=== PATIENT | female | born 1995 | race Native Hawaiian/Other Pacific Islander ===

== ENCOUNTER 2024-11-20 10:49 | Outpatient (AMB) | payer OTHER, SELFPAY ==
--- NOTE | 2024-11-20 10:57 | A.OFFPC_ITS ---
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: No Allergies No Known Allergies Allergy (Verified 11/20/24 11:11) Medication List - Last Reconciled 11/20/24 by GUNNER Davis No Known Home Meds Tobacco use date assessed: 11/20/24 Dental Screening Dental Screen Date: 11/20/24 Did you have a dental visit in the last 12 months?: Yes Did you have a dental problem in the last 6 months where you did not have access to dental care?: No Was dental information given to patient?: Patient has dentist HPI HPI Comments History of Present Illness Details 29 y/o F with migraines, Vit d def, GERD , herpes, dysmenorrhea, elevated DEZ, scoliosis, NEL, MDD Family hx: Brother with RA; Mom with aneurysm Social: works at [email or web address] as [employer]; 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 Surgery: EGD Health Maintenance Tdap admin today Pap [facility] Specialist TRANSPORT MEDIC Rheum - no longer ff'd Optho [facility] exam 6 months ago; wears glasses Neuro Here to est care & for CPE Previous PCP: Rhiannon - records rec'd and reviewed. History of Present Illness - Has migraines. She describes a history of chronic migraines, previously managed with medications such as amitriptyline. - She experiences early sensitivity prio r to migraines; occasionally with nausea and vomiting. Has been off meds for some time. would like to see neuro - An established history of scoliosis an d chronic issues with pain in her back - Desires weight gain and has explored d ietary means, finding them ineffective. aunt on Testosterone injectables and she wants to start. states she does not want to undergo a full F to M transition but would like the benefits of getting bigger - Past medical history includes vitamin D deficiency. Not on supplement at this time Past Surgical History - History of blood transfusions in 2019 and 2011 d/t heavy menses. Social History - Employment involves significant hand m otion, leading to joint discomfort. - Nutrition-focused to gain weight; disc usses dietary habits and nutritional considerations. - Denies current exercise routine but sh owed interest in starting physical therapy. Health Maintenance - Tetanus booster due in 2018 was discus sed. - Discussed plans for routine vaccinatio n updates. - Recommended routine women?s health scr eenings. - Emphasized using patient portal for fu rther direct communication. Review of Systems - Neurological: Reports frequent migrain es, sometimes accompanied by nausea or vomiting. - Musculoskeletal: Reports joint pain pr imarily in fingers. - Gastrointestinal: Reports chronic cons tipation. - General: Denies fainting spells during lab tests. Physical Exam General: Well developed, well nourished, in no acute distress. Appears stated age. Head: Normocephalic, atraumatic. Eyes: Pupils are equal, round and reactive to light and accommodation. Conjunctivae are clear. Vision grossly normal. Ears: TMs clear AU, EACS WNL Nose: Patent, without discharge. Neck: Supple, no adenopathy or thyromegaly. Breast: Edu on SBE Lungs: Clear to auscultation bilaterally. No rales, rhonchi or wheeze noted. Good air flow in all nunes. Heart: Regular rate and rhythm. No murmurs, click, rubs or gallops are noted. Abdomen: Bowel sounds present in all quadrants. The abdomen is soft, nontender, with no masses or organomegaly noted. No hernias are noted. : Deferred. Reviewed recommendations for routine TRANSPORT MEDIC Pulses: Peripheral pulses are equal and palpable bilaterally. Extremities: No clubbing, cyanosis nor edema is noted. Neurologic: Gait and station normal. Cranial Nerves 2-12 intact. Motor strength grossly symmetrical and intact. No sensory loss. Balance normal. Scoliosis observed Skin: No rashes, ulcers, or lesions noted. Turgor is good. Skin color is good. Hair and nails are without abnormalities. Psych: Normal eye contact, affect and mood appropriate, and normal interactions. Patient is alert and appropriate to context. Results Labs from today WNL. Discussion Notes We discussed her ongoing management of migraine headaches, focusing on possibly reintroducing a medication such as amitriptyline. Options for preventive strategies were tied to lifestyle adjustments. Recommedl physical therapy to mitigate back pain from scoliosis. I provided guidance on using the patient portal for more streamline health communications. I highlighted the importance of weight management, emphasizing nutritional approaches while referring to endocrinology to review use to Testosterone. Discouraged use from friends, family or the like. Further, discussed a possible tetanus vaccine update and the significance of keeping vaccinations current. Assessment and Plan 1. Migraine management involves potentia l reinitiating of amitryptiline, riboflavin and sumitriptan considering past success. Monitoring individual response to medication was discussed. [facility] Neuro referrral 2. For scoliosis-related symptoms, recom mendation to start physical therapy as a proactive approach to minimize discomfort. Patient Instructions - Begin exploring physical therapy optio ns for back support. - Monitor headaches and discuss any wors ening patterns. - Plan for the tetanus vaccine during e next available appointment. Consent Patient was informed and verbally consented to the use of an ambient scribe for clinic note documentation during this visit. An additional 40 minutes was spent addressing the problem(s) noted at todays visit. This includes time spent before the visit reviewing the chart, time spent during the visit, and time spent after the visit on documentation reviewing l aboratory results, diagnostic imaging, medications, performing a medically necessary evaluation, counseling on diagnoses, care coordination, ordering appropriate tests, ordering appropriate medications, review of tests performed by other providers, reporting test results with the patient, communication with other healthcare providers. [facility] Medical History (Updated 11/20/24 @ 21:01 by Selene Braxton [facility]) Anemia Migraines Surgical History (Updated 11/20/24 @ 11:08 by Milena Keller MA) No pertinent past surgical history Family History (Updated 11/20/24 @ 11:08 by Milena Keller MA) Mother Mental health disorder Asthma Sister Asthma Social History (Updated 11/20/24 @ 11:07 by Milena Keller MA) Household Members: Significant Other and Family Housing: House Are you a primary critical care paramedic to a significant other at home: No Do you presently have visiting nurse or other home services: No Alcohol intake: current Alcohol intake frequency: a few times a month Patient Tobacco Use Status: Never used Tobacco e-Cigarette/Vaping Use: Never Used Second Hand Smoke Exposure: No Substance Use Type: Marijuana service: No Current occupational status: employed Current occupation: [employer] Cognitive needs: No Hearing needs: No Vision needs: Yes (wear glasses) Questionnaire PHQ-9 Over the last 2 weeks, how often have you been bothered by any of the following problems? 1. Little interest or pleasure in doing things: not at all 2. Feeling down, depressed, or hopeless: not at all 3. Trouble falling or staying asleep, or sleeping too much: not at all 4. Feeling tired or having little energy: several days 5. Poor appetite or overeating: not at all 6. Feeling bad about yourself - or that you are a failure or have let yourself or your family down: not at all 7. Trouble concentrating on things, such as reading the newspaper or watching television: not at all 8. Moving or speaking so slowly that other people could have noticed. Or the opposite - being so fidgety or restless that you have been moving around a lot more than usual: not at all 9. Thoughts that you would be better off or of hurting yourself in some way: not at all Total score: 1 Depression Screening Interpretation: Negative Depression Screening Done: Yes 12344 - PHQ-9 Billing: Yes Source: Developed by Drs. Mauro Bonilla, Kemi Galaviz, Hugo Pavon and colleagues, with an educational mary from [employer]. Thrive Questionnaire Date Thrive assessed: 11/20/24 I am a: Patient What is your living situation today?: I have a steady place to live Within the past 12 months, did the food you bought not last and you didn't have the money to get more?: Never true Within the past 12 months, did you worry whether your food would run out before you got money to buy more?: Never true Do you have trouble paying for medicines?: No Do you have trouble getting transportation to medical appointments?: No Do you have trouble paying your heating and electricity bill?: No Do you have trouble taking care of your child, family member or friend?: No Do you have trouble with day-to-day activities such as bathing, preparing meals, shopping, managing finances, etc.?: No Are you currently unemployed and looking for a job?: No Are you interested in more education?: No Please select the resources that you would like help with: None Currently or been in a relationship where the following occur: No concerns reported THRIVE Score: 0 AUDIT C Alcohol Use Questionnaire (AUDIT-C) 1. How often do you have a drink containing alcohol?: 2-4 times a month 2. How many drinks containing alcohol do you have on a typical day when you are drinking?: 3 or 4 3. How often do you have six or more drinks on one occasion?: Never Total Score: 3 Score Reviewed/Action Taken: Yes NEL-7 AMB Questionnaire NEL-7 Date NEL - 7 assessed: 11/20/24 Feeling nervous, anxious, or on edge: 0 = Not at all Not being able to stop or control worryin = Not at all Worrying too much about different things: 0 = Not at all Trouble relaxin = Several days Being so restless that it is hard to sit still: 0 = Not at all Becoming easily annoyed or irritable: 0 = Not at all Feeling afraid as if something awful might happen: 0 = Not at all Total NEL-7 score (0-4 normal; 5-9 mild; 10-14 moderate; 15-21 severe): 1 Source: Developed by Drs. Mauro Bonilla, Kemi Galaviz, Hugo Pavon and colleagues, with an educational mary from [employer]. ENL-7 Assessment Billing NEL-7 Assessment Tool: NEL-7 Assessment 95440 Physical exam (Primary Care) Vital Signs: Last Vital Signs Temp 97.3 F 11/20/24 11:03 Pulse 66 11/20/24 11:03 Resp 12 11/20/24 11:03 BP 97/67 11/20/24 11:03 Pulse Ox 99 11/20/24 11:03 Oxygen Delivery Method Room Air 11/20/24 11:03 BMI result Body Mass Index 16.0 Tobacco/Smoking Status: Tobacco use Status Tobacco use date assessed 11/20/24 11/20/24 11:05 Patient Tobacco Use Status Never used Tobacco 11/20/24 11:07 e-Cigarette/Vaping Use Never Used 11/20/24 11:07 PHQ-9: PHQ-9 Score PHQ-9: Total score 1 11/20/24 11:52 Depression Screening Interpretation: Negative Thrive Assessment: Date of Thrive Assessment Date Thrive assessed 11/20/24 11/20/24 11:01 Currently or been in a relationship where the following occur: No concerns reported Immunizations Boostrix Tdap 2.5 Lf unit-8 mcg-5 Lf/0.5 mL intramuscular syringe Performing Provider: SENAIT Davis Performing Location: [facility] Family Medicine Administered by: Justina Torres RN on 11/20/24 11:51 Dose Route Admin Location Dispensed Lot Number Expiration Date NDC 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[employer] 0.5 mL IM Left Deltoid 0.5 mL [id number] 07/26/26 [id number] [employer] VIS Given Date VIS Provided VIS Publication Date 11/20/24 Single Vaccine 21 Eligibility Eligibility Date Funding Source Not [facility] Eligible 11/20/24 Private Coding Level of Care Code New Pt Level 3 (13067) New Pt Prev Care 18-39yr(60208 Diagnoses Encounter for general adult medical examination with abnormal findings Z00.01 Laboratory exam ordered as part of routine general medical examination Z00.00 Migraine with aura and without status migrainosus, not intractable G43.109 Status migrainosus presence: without status migrainosus Intractability: not intractable Family history of aneurysm Z82.49 Chronic left-sided thoracic back pain M54.6; G89.29 Back pain location: thoracic back pain Chronicity: chronic Back pain laterality: left Hormone replacement therapy Z79.890 Need for Tdap vaccination Z23 Other idiopathic scoliosis, thoracolumbar region M41.25 Idiopathic scoliosis type: other Spinal region: thoracolumbar Scoliosis type: idiopathic Mild episode of recurrent major depressive disorder F33.0 Major depression episode severity: mild NEL (generalized anxiety disorder) F41.1 Herpes B00.9 Vitamin D deficiency E55.9 GERD without esophagitis K21.9 Positive DEZ (antinuclear antibody) R76.8 Additional Codes NEL-7 Assessment Billing - NEL-7 Assessment Tool: NEL-7 Assessment 77619 ([id number]) PHQ-9 - 66395 - PHQ-9 Billing: Yes ([id number]) Assessment & Plan Assessment & Plan (1) Encounter for general adult medical examination with abnormal findings: Onset Date: ~11/2024 Code(s): Z00.01 - Encounter for general adult medical examination with abnormal findings Category: Medical (2) Laboratory exam ordered as part of routine general medical examination: Code(s): Z00.00 - Encounter for general adult medical examination without abnormal findings Category: Medical (3) Migraine with aura: Code(s): G43.109 - Migraine with aura, not intractable, without status migrainosus Category: Medical Qualifiers: Status migrainosus presence: without status migrainosus Intractability: not intractable Qualified Code(s): G43.109 - Migraine with aura, not intractable, without status migrainosus (4) Family history of aneurysm: Comment: Mom has brain aneurysm Code(s): Z82.49 - Family history of ischemic heart disease and other diseases of the circulatory system Category: Medical (5) Back pain: Code(s): M54.9 - Dorsalgia, unspecified Category: Medical Qualifiers: Back pain location: thoracic back pain Chronicity: chronic Back pain laterality: left Qualified Code(s): M54.6 - Pain in thoracic spine; G89.29 - Other chronic pain (6) Hormone replacement therapy: Code(s): Z79.890 - Hormone replacement therapy Category: Medical (7) Need for Tdap vaccination: Code(s): Z23 - Encounter for immunization Category: Medical (8) Scoliosis: Code(s): M41.9 - Scoliosis, unspecified Category: Medical Qualifiers: Idiopathic scoliosis type: other Spinal region: thoracolumbar Scoliosis type: idiopathic Qualified Code(s): M41.25 - Other idiopathic scoliosis, thoracolumbar region (9) MDD (major depressive disorder), recurrent episode: Comment: stable w/o meds Code(s): F33.9 - Major depressive disorder, recurrent, unspecified Category: Medical Qualifiers: Major depression episode severity: mild Qualified Code(s): F33.0 - Major depressive disorder, recurrent, mild (10) NEL (generalized anxiety disorder): Comment: stable w/o meds Code(s): F41.1 - Generalized anxiety disorder Category: Medical (11) Herpes: Code(s): B00.9 - Herpesviral infection, unspecified Category: Medical (12) Vitamin D deficiency: Comment: vit d normal today w/o supplement Code(s): E55.9 - Vitamin D deficiency, unspecified Category: Medical (13) GERD without esophagitis: Comment: stable w/o meds Code(s): K21.9 - Gastro-esophageal reflux disease without esophagitis Category: Medical (14) Positive DEZ (antinuclear antibody): Comment: with negative assoc labs; seen by rheum in past; negative findings Code(s): R76.8 - Other specified abnormal immunological findings in serum Category: Medical Plan . Orders: Orders Comprehensive Met. Panel Today Z00.00 - Encounter for general adult medical examination without abnormal findings, Z11.3 - Encounter for screening for infections with a predominantly sexual mode of transmission TSH reflex Free T4 Today Z00.00 - Encounter for general adult medical examination without abnormal findings, Z11.3 - Encounter for screening for infections with a predominantly sexual mode of transmission Vitamin B12 and Folate Today Z00.00 - Encounter for general adult medical examination without abnormal findings, Z11.3 - Encounter for screening for infections with a predominantly sexual mode of transmission Complete Blood Count no Diff Today Z00.00 - Encounter for general adult medical examination without abnormal findings, Z11.3 - Encounter for screening for infections with a predominantly sexual mode of transmission Hemoglobin A1c Today Z00.00 - Encounter for general adult medical examination without abnormal findings, Z11.3 - Encounter for screening for infections with a predominantly sexual mode of transmission Lipid Panel Today Z00.00 - Encounter for general adult medical examination without abnormal findings, Z11.3 - Encounter for screening for infections with a predominantly sexual mode of transmission Microalbumin, Random (w Creat) Today Z00.00 - Encounter for general adult medical examination without abnormal findings, Z11.3 - Encounter for screening for infections with a predominantly sexual mode of transmission Vitamin D 25-OH Total Today Z00.00 - Encounter for general adult medical examination without abnormal findings, Z11.3 - Encounter for screening for infections with a predominantly sexual mode of transmission HIV Ab/Ag Today Z00.00 - Encounter for general adult medical examination without abnormal findings, Z11.3 - Encounter for screening for infections with a predominantly sexual mode of transmission Syphilis Screen Today Z00.00 - Encounter for general adult medical examination without abnormal findings, Z11.3 - Encounter for screening for infections with a predominantly sexual mode of transmission UA CC w/rflx Micro + Cult Today Z00.00 - Encounter for general adult medical examination without abnormal findings, Z11.3 - Encounter for screening for infections with a predominantly sexual mode of transmission PT Evaluation and Treatment Today M41.9 - Scoliosis, unspecified, M54.9 - Dorsalgia, unspecified TDaP Immunization Today Z23 - Encounter for immunization Referrals [facility] Referral Z12.4 - Encounter for screening for malignant neoplasm of cervix Endocrinology Referral Z79.890 - Hormone replacement therapy Neurology Referral G43.109 - Migraine with aura, not intractable, without status migrainosus, Z82.49 - Family history of ischemic heart disease and other diseases of the circulatory system Medications: New sumatriptan succinate take 1 tab at onset of headache; if no relief may repeat 1 tab after at least 2 hrs; max = 4 tabs/24 hr PO 7 tabs 3RF riboflavin (vitamin B2) 100 mg PO DAILY 90 tabs 2RF amitriptyline 10 mg PO BEDTIME 90 tabs 1RF Patient Instructions: Walk-In Care (Urgent Care): We Make it Easy Walk-in for urgent medical issues such as: ? Seasonal Allergies ? Insect Bites ? Cough ? Diarrhea ? Acute Asthma Attacks ? Back, Knee or Joint Pain ? Ear Infection ? Fever without a Rash ? Headaches ? Nausea ? [place] [facility], Rash or Skin Irritation ? Sore Throat ? Sports Physicals ? Vomiting Most insurances are accepted. Patients do not need to be part of the [facility] to seek care at the walk-in clinic. Locations [facility] , [place] [address] ? [phone] [facility] Walk-In Care in [place] provides services to ages 18 and over. Open Monday-Monday: 8 a.m. to 5 p.m. and Monday: 9 a.m. to 3 p.m.* *Hours may vary due to staffing availability. To confirm Walk-In Care hours in [place], please call [phone]. [address] [place] [address] ? [phone] [facility] Walk-In Care in [place] provides services to ages 12 and over. Open Monday-Monday: 8 a.m. to 5 p.m. Hours may vary due to staffing availability. To confirm Walk-In Care hours in [place], please call [phone]. LABORATORY SERVICES: [facility] Lab ? Primary Location [address] [place] [address] Monday through Monday 6:00 AM ? 5:00 PM Monday 7:00 AM ? 11:00 AM* [phone] The [facility] Lab is centrally located near the front entrance of the [facility] for easy outpatient access. Convenient parking is provided for outpatients. *Hours may vary due to staffing availability. To confirm Laboratory hours for any location, please call [phone]. Offsite Location For your convenience, we offer offsite laboratory draw stations at the following locations: [address] [facility] [place] [address], [address], [place] Monday through Monday 7:30 AM ? 1:00 PM* [phone] *Hours may vary due to staffing availability. To confirm Laboratory hours for any location, please call [phone]. [place] ? [facility] [address] [facility], [place] Monday through Monday 6:00 AM ? 3:30 PM* Monday 6:30 AM ? 3 PM* [phone] *Hours may vary due to staffing availability. To confirm Laboratory hours for any location, please call [phone]. [address] [facility] Monday through Monday 7:30 AM ? 4:00 PM* [phone] *Hours may vary due to staffing availability. To confirm Laboratory hours for any location, please call [phone] [place] [address] Monday through 9:00 AM ? 4:00 PM* *Hours may vary due to staffing availability. To confirm Laboratory hours for any location, please call [phone]. Appointments are not necessary. Walk-ins are welcome. Like all the departments throughout the [facility], our Lab undergoes frequent reviews to ensure the quality and accuracy of test results, and our staff takes special pride in its status as a nationally accredited facility. Patient Portal: ONE PATIENT. ONE RECORD. BETTER CARE. [facility] has a fully integrated, cutting- edge mobile electronic health information system that has revolutionized the way we care for our patients and manage our organization. This system improves communication and coordination enabling us to provide safe, higher-quality care, and an overall positive experience for staff and patients. Our first priority, as always, is to deliver the highest quality care possible. The system is running in the background supporting that priority. This portal is for all [facility] services and practices. If you are experiencing any technical difficulties with enrolling or logging into the Patient Portal please complete the [facility] Patient Portal Technical Support Form. [facility] now offers a new secure on-line interactive tool for patients to review their health information ? ?Patient Portal. This interactive web portal will enable patients and their families to take an active role in their care by providing easy, secure access to their health information via the internet. The Patient Portal provides patients with instant access to their health information, including laboratory results, medications, allergies, demographic information, visit history, and more. In addition to managing their own care, parents and health care proxies with authorized consent will appreciate the ability to access the records of those individuals for whom they provide care. Please note: if you wish to gain access (Proxy) to another patient?s portal, you will be required to come to the Medical Records Department in person at [facility]. Both the patient giving proxy access and the proxy will need to provide photo identification and complete the appropriate authorization. The Patient Portal also allows track their appointments online. The [facility] Patient Portal also saves patients time by allowing them to submit updates to their demographic and contact information prior to their visits. Portal email notifications will also alert patients to any new activity on their portal, such as test results and new appointments. In order to initially enroll in the [facility] Patient Portal, you will need to enter some required information including the following: * your [facility] Medical Record number * your personal home email address * name * date of Please note: In order to enroll in the [facility] Patient Portal, we need to have your email address on file in your electronic medical record. ?The email address needs to be specific for one person (yourself) in order for your Portal enrollment to be successful. ?You can update your email address in person with our Registration staff when you are registering for a hospital visit. ?Otherwise, you will need to come to the Health Information Management (Medical Records) Department at [facility]. ?We are open from Monday ? Monday from 7:30 a.m. ? 4:30 p.m. ?You will be required to present a photo id. Once you have successfully enrolled in the Patient Portal, you will receive a one-time user id and password for the Portal, sent to your email address. ?This will allow you to log into the Patient Portal within 99 hrs and reset your own logon id and password, and define personal security questions. ?Once your permanent login and password have been set, you can log into the [facility] Patient Portal at any time via the blue button above or from the Portal Logon button on any page of the [facility] website. [facility] and [facility] encourage all of our patients to enroll in Patient Portal as it presents a valuable opportunity for patients and their families to actively participate in their care and stay healthy Welcome to [facility]. ?We look forward to working with you. Health screenings for women You should visit your health care provider from time to time, even if you are healthy. The purpose of these visits is to: Screen for medical issues Assess your risk for future medical problems Encourage a healthy lifestyle Update vaccinations and other preventive care services Help you get to know your provider in case of an illness Information Even if you feel fine, you should still see your provider for regular checkups. These visits can help you avoid problems in the future. For example, the only way to find out if you have high blood pressure is to have it checked regularly. High blood sugar and high cholesterol levels also may not have any symptoms in the early stages. A simple blood test can check for these conditions. There are specific times when you should see your provider or receive specific health screenings. The [place] Preventive Services Task Force publishes a list of recommended screenings. Below are screening guidelines for women ages 18 to 39. BLOOD PRESSURE SCREENING Your blood pressure should be checked at least once every 3 to 5 years if: Your blood pressure is in the normal range (top number less than 120 mm Hg and bottom number less than 80 mm Hg) You don't have risk factors for high blood pressure Ask your provider if you need your blood pressure checked more often if: The top number is 120 to 129 mm Hg or the bottom number is 70 to 79 mm Hg You have diabetes, heart disease, kidney problems, are overweight, or have certain other health conditions You have a first-degree relative with high blood pressure You are Black You had high blood pressure during a If the top number is 130 mm Hg or greater or the bottom number is 80 mm Hg or greater, this is considered stage 1 hypertension. Schedule an appointment with your provider to learn how you can reduce your blood pressure. Watch for blood pressure screenings in your area. Ask your provider if you can stop in to have your blood pressure checked. BREAST CANCER SCREENING Experts do not agree about the benefits of breast self-exams in finding breast cancer or saving lives. Talk to your provider about what is best for you. A screening mammogram is not recommended for most women under age 40. Your provider may discuss and recommend mammograms, MRI scans, or ultrasounds if you have an increased risk for breast cancer, such as: A mother or sister who had breast cancer at a young age (most often starting screening earlier than the age the close relative was diagnosed) You carry a high-risk genetic marker CERVICAL CANCER SCREENING Cervical cancer screening should start at age 21 years unless your provider advi ses otherwise. After the first test: Women ages 21 through 29 should have a Pap test every 3 years. Exoprts do not agree on whether HPV testing is recommended for this age group. Women ages 30 through 65 should be screened with either a Pap test every 3 years or the HPV test every 5 years or both tests every 5 years (called cotesting ). Women who have been treated for precancer (cervical dysplasia) should continue to have Pap tests for 20 years after treatment or until age 65, whichever is longer. If you have had your uterus and cervix removed (total hysterectomy), and you have not been diagnosed with cervical cancer or precancer (high grade cervical neoplasia), you do not need cervical cancer screening. CHOLESTEROL SCREENING Cholesterol screening should begin at: Age 45 for women with no known risk factors for coronary heart disease Age 20 for women with known risk factors for coronary heart disease Repeat cholesterol screening should take place: Every 5 years for women with normal cholesterol levels More often if changes occur in lifestyle (including weight gain and diet) More often if you have diabetes, heart disease, kidney problems, or certain other conditions DIABETES SCREENING You should be screened for diabetes starting at age 35 and then repeated every 3 years if you have no risk factors for diabetes. Screening may need to start earlier and be repeated more often if you have other risk factors for diabetes, such as: You have a first degree relative with diabetes. You are overweight or have obesity. You have high blood pressure, prediabetes, or a history of heart disease. Screening for diabetes should be done if you are planning to become and you are overweight and have other risk factors such as high blood pressure. DENTAL EXAM Go to the dentist once or twice every year for an exam and cleaning. Your dentist will evaluate if you need more frequent visits. EYE EXAM Have an eye exam every 5 to 10 years before age 40. If you have vision problems, have an eye exam every 2 years or more often if recommended by your provider. You should have an eye exam that includes an examination of your retina (back of your eye) at least every year if you have diabetes. IMMUNIZATIONS Commonly needed vaccines include: Flu shot: get one every year. COVID-19 vaccine: ask your provider what is best for you. Tetanus-diphtheria and acellular pertussis (Tdap) vaccine: have one at or after age 19 as one of your tetanus-diphtheria vaccines if you did not receive it as an adolescent. Tetanus-diphtheria: have a booster (or Tdap) every 10 years. Varicella vaccine: receive 2 doses if you never had chickenpox or the varicella vaccine. Hepatitis B vaccine: receive 2, 3, or 4 doses, depending on your exact circumstances. Measles, mumps, and rubella (MMR) vaccine: receive 1 to 2 doses if you are not already immune to MMR. Your provider can tell you if you are immune. Ask your provider about the human papillomavirus (HPV) vaccine if: You have not received the HPV vaccine in the past You have not completed the full vaccine series (you should catch up on this shot) Ask your provider if you should receive other immunizations if you have certain health problems that increase your risk for some diseases such as pneumonia. INFECTIOUS DISEASE SCREENING Women who are sexually active should be screened for chlamydia and gonorrhea up until age 25. Women 25 years and older should be screened for chlamydia and gonorrhea if at high risk. Screening for hepatitis C: All adults ages 18 to 79 should get a one-time test for hepatitis C. people should be screened at every . Screening for human immunodeficiency virus (HIV): All people ages 15 to 65 should get a one-time test for HIV. Depending on your lifestyle and medical history, you may also need to be screened for infections such as syphilis and HIV, as well as other infections. PHYSICAL EXAM All adults should visit their provider from time to time, even if they are healthy. The purpose of these visits is to: Screen for disease Assess your risk of future medical problems Encourage a healthy lifestyle Update your vaccinations and other preventive care services Maintain a relationship with a provider in case of an illness Your height, weight, and BMI should be checked at every exam. During your exam, your provider may ask you about: Depression and anxiety Diet and exercise Alcohol and tobacco use Safety issues, such as using seat belts, smoke detectors, and intimate partner violence Your medicines and risk for interactions SKIN SELF-EXAM Your provider may check your skin for signs of skin cancer, especially if you're at high risk, such as if you: Have had skin cancer before Have close relatives with skin cancer Have a weakened immune system OTHER SCREENING Talk with your provider about colon cancer screening if you have a strong family history of colon cancer or polyps, or if you have had inflammatory bowel disease or polyps yourself. Routine bone density screening of women under 40 is not recommended.
[2024-11-20 11:03] VITALS: BP 97/67; PULSE 66; RESP 12; TEMP 36.3; O2SAT 99; BMI 16.0
--- OUTSIDE RECORDS SUMMARY | 2024-11-20 12:11 | XMS_ITS | Encounter Summary ---
Author Organization [employer] Address [address] [place] [address] [address] [place] [address] Care Team Providers Care Cryptanalyst Name Role Phone Shira Nicole CLOCK REPAIR TECHNICIAN Primary Care Provider [phone] Bob Reaves CLOCK REPAIR TECHNICIAN Primary Care Provider [phone] Reason for Visit * Reason Comments Med Change Request Encounter Details Date Type Department Care Team ([facility] Contact Info) Description 07/13/2022 Refill [facility] MAIN ADULT [address] [place] [address] Brooks Napoles NP [address] [place] [address] Sore throat Social History Tobacco Use Types Packs/Day Years Used Date Smoking Tobacco: Never Assessed Comments Unknown Sex and Gender Information Value Date Recorded Sex Assigned at Female 05/17/2022 2:00 PM EDT Legal Sex Female 2:00 PM EDT Gender Identity Female 05/17/2022 2:00 PM EDT Sexual Orientation Straight 09/26/2022 10 :38 AM EDT COVID-19 Exposure Response Date Recorded In the last 10 days, have yo u been in contact with someone who was confirmed or suspected to have Coronavirus/COVID-19? No / Unsure 07/15/2022 7:14 AM EST documented as of this encounter Plan of Treatment Not on file documented as of this encounter Visit Diagnoses Diagnosis Sore throat Acute pharyngitis documented in this encounter Care Teams Cryptanalyst Relationship Specialty Start Date End Date Shira Nicole NP PCP - General 07/17/21 10/03/23 Bob Reaves NP [address] [place] [id number] PCP - General Family Medicine 10/04/23 documented as of this encounter
--- OUTSIDE RECORDS SUMMARY | 2024-11-20 12:11 | XMS_ITS | Encounter Summary ---
Author Organization [employer] Address [address] [place] [address] [address] [place] [address] Care Team Providers Care Supervisor Cutting And Sewing Room Name Role Phone Shira Nicole PLUSH BRUSHER Primary Care Provider [phone] Bob Reaves PLUSH BRUSHER Primary Care Provider [phone] Encounter Details Date Type Department Care Team (Latest Contact Info) Description 11/05/2020 Abstract [facility] CONVERSION Dental, Provider, DDS Social History Tobacco Use Types Packs/Day Years Used Date Smoking Tobacco: Never Assessed Comments Unknown Sex and Gender Information Value Date Recorded Sex Assigned at Female 05/17/2022 2:00 PM EDT Legal Sex Female 2:00 PM EDT Gender Identity Female 05/17/2022 2:00 PM EDT Sexual Orientation Straight 09/26/2022 10 :38 AM EDT documented as of this encounter Plan of Treatment Not on file documented as of this encounter Visit Diagnoses Not on filedocumented in this encounter Care Teams Supervisor Cutting And Sewing Room Relationship Specialty Start Date End Date Shira Nicole NP PCP - General 07/17/21 10/03/23 Bob Reaves NP [address] [place] [id number] PCP - General Family Medicine 10/04/23 documented as of this encounter
--- OUTSIDE RECORDS SUMMARY | 2024-11-20 12:11 | XMS_ITS | Encounter Summary ---
Author Organization [employer] Address [address] [facility] [address] [place] [address] Care Team Providers Care Plywood Matcher Name Role Phone Shira Nicole IMPRESS ASSOCIATE Primary Care Provider [phone] Bob Reaves IMPRESS ASSOCIATE Primary Care Provider [phone] Reason for Visit * Reason Comments Med Refill Encounter Details Date Type Department Care Team ([facility] Contact Info) Description 07/13/2022 Refill [facility] MAIN ADULT [address] [place] [address] Shira Nicole NP [address] [place] [id number] Social History Tobacco Use Types Packs/Day Years [...] AM EST documented as of this encounter Miscellaneous Notes * Telephone Encounter - Annel Herron RN - 07/14/2022 10:45 AM EST Pt called, stated that she has a terrible taste in her mouth since taking her first dose of Paxlovid this morning. Pt stated that it's a metallic taste. This nurse informed pt that this is a normal s/e of the med and I am told that caramel candies help lessen that taste. Also, pt was only given 3 of the 5 meds that were ordered yesterday. I called [facility], and spoke with Alvarado, who reported that he has sent an electronic message to ordering provider for clarification/substitution on Vitamin C, andis waitring for a response. Also Cepacol lozenges are unavailable, but they have Chloraseptic throat spray, which is not covered by pt's insurance. Alvarado stated that, as soon as thet hear back from provider on clarification, they will be able to deliver mkeds top pt. Pt has been informed of this, was encouraged to drink plenty of fluids, eat bland foods, call back if there are any questions. Routed to Brooks Napoles NP. documented in this encounter Plan of Treatment Not on file documented as of this encounter Visit Diagnoses Not on filedocumented in this encounter Care Teams Plywood Matcher Relationship Specialty Start Date End Date Shira Nicole NP PCP - General 07/17/21 10/03/23 Bob Reaves NP [address] [place] [id number] PCP - General Family Medicine 10/04/23 documented as of this encounter
--- OUTSIDE RECORDS SUMMARY | 2024-11-20 12:11 | XMS_ITS | Clinical Summary ---
Author Organization [facility] Address [address] [place] [address] Care Team Providers Care Insurance Claim Approver Name Role Phone Unavailable Primary Care Provider Unavailabl e Social History Tobacco Use Types Packs/Day Years Used Date Smoking Tobacco: Never Assessed Comments Unknown Sex and Gender Information Value Date Recorded Sex Assigned at Not on file Legal Sex Female 3:44 PM EDT Gender Identity Not on file Sexual Orientation Not on file Plan of Treatment Health Maintenance Due Date Last Done Comments DTaP,Tdap,and Td Vaccines (1 - Tdap) 01/21/2016 Hepatitis B Vaccines (1 of 3 - 19+ 3-dose series) 01/21/2016 Cervical Cancer Screening: P ap Smear 2018 COVID-19 Vaccine ( - 2023-2 5 season) 2024 Depression Screening 05/12/2024 HIV Screening 05/12/2024 Hepatitis C Screening 05/12/2024 Social Influencers of Health Screening 05/12/2024 Influenza Vaccine (Season Ended) 2025 HIB Vaccines Aged Out No longer eligi ble based on patient's age to complete this topic HPV Vaccines Aged Out No longer eligi ble based on patient's age to complete this topic Hepatitis A Vaccines Aged Out No long er eligible based on patient's age to complete this topic IPV Vaccines Aged Out No longer eligi ble based on patient's age to complete this topic MMR Vaccines Aged Out No longer eligi ble based on patient's age to complete this topic Meningococcal ACWY Vaccine Aged Out N o longer eligible based on patient's age to complete this topic Meningococcal B Vaccine Aged Out No l onger eligible based on patient's age to complete this topic Pneumococcal Vaccine: Pediat rics (0 to 5 Years) and At-Risk Patients (6 to 64 Years) Aged Out No longer eligible b ased on patient's age to complete this topic RSV Immunization Patients Un vineet 20 months Aged Out No longer eligible b ased on patient's age to complete this topic Varicella Vaccines Aged Out No longer eligible based on patient's age to complete this topic
--- OUTSIDE RECORDS SUMMARY | 2024-11-20 12:11 | XMS_ITS | Clinical Summary ---
Author Organization [employer] Address [address] [place] [address] Care Team Providers Care Repair Manager Name Role Phone Bob Reaves SUPERVISOR DOPING Primary Care Provider [phone] Allergies No known active allergies Medications amitriptyline (Elavil) 10 MG tablet Active clotrimazole (Lotrimin) 1 % cream Active hydrOXYzine pamoate (Vistaril) 100 MG capsule Active butalbital-acet aminophen-caffe ine 50-325-40 MG tablet TAKE 1 OR 2 TABLETS BY MOUTH EVERY 4 TO 6 HOURS NEEDED FOR MIGRAINE 2 Active butalbital-acet aminophen-caffe ine 50-325-40 MG tablet 1 tab PO BID PRN for migraines. No more than 2tabs in 24 hours 5 Active cyproheptadine (Periactin) 4 MG tablet Take 1 tablet by mouth every 12 (twelve) hours. 2 Active cyproheptadine (Periactin) 4 MG tablet Take 1 tablet by mouth in the morning and at bedtime. 2 Active ergocalciferol (Vitamin D-2) 1.25 MG (48586 UT) capsule take 1 capsule by oral route every week 2 Active ibuprofen 800 MG tablet take 1 tablet by oral route 3 times every day per pain with food max dose 3200MG 1 Active gabapentin (Neurontin) 300 MG capsule 1 cap PO qHS 6 Active metroNIDAZOLE (Flagyl) 500 MG tablet Take 500 mg by mouth every 8 (eight) hours. 2 Active omeprazole OTC (PriLOSEC OTC) 20 MG EC tablet Take 20 mg by mouth in the morning. 2 Active ondansetron (Zofran) 4 MG tablet Take 4 mg by mouth in the morning and at bedtime. 2 Active ondansetron (Zofran) 4 MG tablet Take 1 tablet by mouth every 12 (twelve) hours. 2 Active riboflavin (Vitamin B-2) 100 MG tablet 2 tabs daily 6 Active tiZANidine (Zanaflex) 4 MG tablet 1 tablet 9 Active ZOLMitriptan (Zomig) 5 MG nasal solution [place] into 1 nostril, once. If not relieved, the dose may be repeated if at least 2 hours have elapse since first dose. Do not inhale while you administer the med. 5 Active magnesium oxide 400 MG capsule 1 cap daily 6 Active triamcinolone (Kenalog) 0.025 % cream Active SUMAtriptan (Imitrex) 100 MG tablet Active terbinafine (LamISIL) 1 % cream Active Benzocaine-Ment hol (Cepacol Sore Throat) 15-2.6 MG lozengeIndicati ons:Sore throat Take 1 lozenge po Q2hrs x 10 days 30 lozenge 2 Active naproxen (Naprosyn) 500 MG tablet Take 1 tablet by mouth twice a day As Needed for pain 10 tablet 10/23/2023 3:07 PM EDT 4 Active penicillin v potassium (Veetid) 500 MG tablet Take 1 tablet by mouth four times daily for 7 days 28 tablet 10/23/2023 3:07 PM EDT 4 Active Active Problems Problem Noted Date Diagnosed Date Dysmenorrhea 07/13/2022 Refractory migraine with aura 07/13/2022 Nonruptured cerebral aneurysm 04/23/2015 Menorrhagia 05/19/2014 Migraine 11/20/2013 Immunizations Name Administration Dates Next Due DTaP 03/22/2001, 8,1997,05/29,1997 HPV, Quadrivalent 04/13/2015,03/13/2008 HPV, Unspecified 05/13/2008 Hep B, Adolescent or Pediatric 1997 Hep B, adult 1997,1997 HiB, unspecified 1997,1997 Hib (PRP-T) 1997 IPV 03/22/2001, 8,1997,03/24 Influenza injectable quadriv alent preservative free 04/13/2015 Influenza, Split (incl. benigno fied surface antigen) 03/14/2013 Omar SARS-CoV-2 Vaccination 08/26/2021 MMR 03/22/2001,01/28/1998 Meningococcal MCV4P [id number] 04/13/2015 Moderna Covid-19 Vaccine 12+ 11/13/2021 Tdap 02/22/2008 Varicella 04/13/2015,04/02/2004 Family History Medical History Relation Name Comments Asthma Brother Migraines Brother Throat cancer Maternal Grandfather Ovarian cancer Maternal Grandmother Breast cancer Paternal Grandmother Relation Name Status Comments Brother Maternal Grandfather Maternal Grandmother Paternal Grandmother Social History Tobacco Use Types Packs/Day Years Used Date Smoking Tobacco: Never Smokeless Tobacco: Never Tobacco Cessation:Counseling Given: Not Answered Alcohol Use Standard Drinks/Week Comments Never 0 (1 standard drink = 0.6 oz pur e alcohol) Depression Answer Date Recorded Patient Health Questionnaire-2 Score 0 11/03/2022 Comments Unknown Sex and Gender Information Value Date Recorded Sex Assigned at Female 05/17/2022 2:00 PM EDT Legal Sex Female 2:00 PM EDT Gender Identity Female 05/17/2022 2:00 PM EDT Sexual Orientation Straight 09/26/2022 10 :38 AM EDT Last Filed Vital Signs Vital Sign Reading Time Taken Comments Blood Pressure 110/75 11/16/2022 5:28 PM EDT Pulse 91 11/16/2022 5:28 PM EDT Temperature 36.8 ??C (98.3 ??F) 11/16/2022 5:28 PM ED T Respiratory Rate 12 11/16/2022 5:28 PM EDT Oxygen Saturation 100% 11/16/2022 5:28 PM EDT Inhaled Oxygen Concentration - - Weight 32.7 kg (72 lb) 11/16/2022 5:28 PM EDT Height 147.3 cm (4' 10 ) 11/03/2022 1:24 PM EDT Body Mass Index 15.05 11/03/2022 1:24 PM EDT Plan of Treatment Health Maintenance Due Date Last Done Comments SDOH Screening 1997 Alcohol/Substance Use Screening 2009 Family Planning (PISQ) 01/21/2012 Pap Smear 2018 DTaP/Tdap/Td Vaccines (7 - Td or Tdap) 02/21/2018 02/22/2008, 03/22/2001, 05/11/1998, Additional history exists Depression Screening 11/04/2023 11/03/2022, 11/04/19 Tobacco Screening 11/04/2023 11/03/2022 COVID-19 Vaccine ( season) 2024 11/13/2021, 08/26/2021 Influenza Vaccine (#1) 2024 04/13/2015, 2012 Zoster Vaccines (1 of 2) 2047 RSV Patients and Patients Aged 60 years or older (1 - 1-dose 75+ series) 01/21/2072 HIB Vaccines Aged Out 1997, 05/17, 1997 No longer eligible based on patient's age to complete this topic Hepatitis B Vaccines Completed 1997, 1997, 1997 IPV Vaccines Completed 03/22/2001, 07/17, 1997, Additional history exists HPV Vaccines Completed 04/13/2015, 04/17, 03/13/2008 Meningococcal Vaccine Completed 04/13/2015 HIV Screening Completed 09/26/2022 Hepatitis C Screening Completed 09/26/2022 Hepatitis A Vaccines Aged Out No long er eligible based on patient's age to complete this topic Pneumococcal Vaccine: Pediatrics (0 to 5 Years) and At-Risk Patients (6 to 49) Years) Aged Out No longer eligible based on patient's age to complete this topic RSV under 20 months Aged Out No longe r eligible based on patient's age to complete this topic Rotavirus Vaccines Aged Out No longer eligible based on patient's age to complete this topic Procedures Procedure Name Priority Date/Time Associated Diagnosis Comments HEPATITIS C AB W/REFL TO HCV RNA, QN, PCR Routine 09/26/2022 12:20 PM EDT Screen for STD (sexually transmitted disease) HIV 1/2 ANTIGEN/ANTIBODY, FOURTH GENERATION W/RFL Routine 09/26/2022 12:20 PM EDT Screen for STD (sexually transmitted disease) from Last 3 Months or Most Recently Relevant to Health Maintenance Results * Hepatitis C Antibody with Reflex to HCV, RNA, Quantitative, Real-Time PCR (09/26/2022 12:20 PM EDT) Hepatitis C Antibody NON-REACT ZEINAB NON-REACT ZEINAB [facility] [place] [facility] [facility] 0.07 <1.00 [facility] [place] [facility] Comment: HCV antibody was non-reactive. There is no laboratory evidence of HCV infection. In most cases, no further action is required. However, if recent HCV exposure is suspected, a test for HCV RNA (test code 82936) is suggested. For additional information please refer to http://education.[employer]/faq/ZPM55z5 (This link is being provided for informational/ educational purposes only.) Blood Venous blood specimen / Unknown 09/26/2022 12:20 PM EDT 09/27/2022 3:25 AM EDT Ana Nunez NP LAB BLOOD ORDERABLES Final Re sult [facility] [address], [place] [address] [facility] [place] [facility] [address] [place] [address] * HIV-1/2 Antigen and Antibodies, Fourth Generation, with Reflexes (09/26/2022 12:20 PM EDT) Pathologist [facility] HIV Antigen/Antibody, 4th Generation NON-REAC TIVE NON-REAC TIVE [facility] [place] [employer] Comment: HIV-1 antigen and HIV-1/HIV-2 antibodies were not detected. There is no laboratory evidence of HIV infection. PLEASE NOTE: This information has been disclosed to you from records whose confidentiality may be protected by state law. ??If your state requires such protection, then the state law prohibits you from making any further disclosure of the information without the specific written consent of the person to whom it pertains, or as otherwise permitted by law. A general authorization for the release of medical or other information is NOT sufficient for this purpose. ?? For additional information please refer to http://education.[employer]/faq/TKR480 (This link is being provided for informational/ educational purposes only.) The performance of this assay has not been clinically validated in patients less than 2 years old. Blood Venous blood specimen / Unknown 09/26/2022 12:20 PM EDT 09/27/2022 3:25 AM EDT Ana Nunez SUPERVISOR DOPING LAB BLOOD ORDERABLES Final Re sult [facility] [address], [place] [address] [facility] [address] [place] [address] from Last 3 Months or Most Recently Relevant to Health Maintenance Insurance [place] [id number] [employer] Care Teams Repair Manager Relationship Specialty Start Date End Date Bob Reaves NP [address] [place] [phone] PCP - General Family Medicine 10/04/23
== END 2024-11-20 11:49 | disposition home or self-care (01) ==
LOC: HO.HMCFM 10:50
PROVIDERS: PCP Nurse Practitioner Family; Visit Provider Nurse Practitioner Family
DX: Z00.00 Encounter for general adult medical examination without abnormal findings (principal); G43.109 Migraine with aura, not intractable, without status migrainosus; Z82.49 Family history of ischemic heart disease and other diseases of the circulatory system; M54.6 Pain in thoracic spine; G89.29 Other chronic pain; Z79.890 Hormone replacement therapy; Z23 Encounter for immunization; M41.25 Other idiopathic scoliosis, thoracolumbar region; F33.0 Major depressive disorder, recurrent, mild; F41.1 Generalized anxiety disorder; B00.9 Herpesviral infection, unspecified; E55.9 Vitamin D deficiency, unspecified

== ENCOUNTER → 2024-11-20 10:49 | Outpatient (BNVA) | payer OTHER, SELFPAY | PROVIDERS: PCP Nurse Practitioner Family; Visit Provider Nurse Practitioner Family | DX: Z00.01 Encounter for general adult medical examination with abnormal findings (principal); Z23 Encounter for immunization; G43.109 Migraine with aura, not intractable, without status migrainosus; M54.6 Pain in thoracic spine; G89.29 Other chronic pain; M41.25 Other idiopathic scoliosis, thoracolumbar region; F33.0 Major depressive disorder, recurrent, mild; F41.1 Generalized anxiety disorder; B00.9 Herpesviral infection, unspecified; E55.9 Vitamin D deficiency, unspecified; K21.9 Gastro-esophageal reflux disease without esophagitis; R76.8 Other specified abnormal immunological findings in serum; Z79.890 Hormone replacement therapy; Z82.49 Family history of ischemic heart disease and other diseases of the circulatory system | CPT/HCPCS: 90471; 90715; 96127 ==

== ENCOUNTER 2024-11-20 12:45 | Outpatient (REF) | payer OTHER, SELFPAY ==
--- OUTSIDE RECORDS SUMMARY | 2024-11-20 13:53 | XMS_ITS | Clinical Summary ---
Author Organization [facility] Address [address] [place] [address] Care Team Providers Care Elevator Attendant Name Role Phone Unavailable Primary Care Provider [...]
[2024-11-20 14:32] LABS: Estimated Average Glucose 94 mg/dL; Hemoglobin A1C 105.9285 umol/L; Hemoglobin A1c % 4.9 % (<6.0); Total Hemoglobin (HGBA1C) 3482.9983 umol/L
[2024-11-20 14:35] LABS: Appearance Urine Clear; Color Urine Yellow; Glucose Urine UA Negative (Negative); Leukocyte Esterase Urine Negative (Negative); Nitrite Urine Negative (Negative); Specific Gravity - Urine 1.015 (1.005-1.025); Urine Blood Negative (Negative); Urine Ketones Negative (Negative); Urine Protein Negative (Neg-Trace)
[2024-11-20 14:48] LABS: Hematocrit 38.8 % (37.0-47.0); Hemoglobin 13.2 g/dl (12.0-16.0); Mean Corpuscular Hemoglobin 31.5 pg (27.0-33.0); Mean Corpuscular Volume 92.6 fL (80.0-98.0); Platelet Count 209 X10*3/uL (160-400); Red Blood Count 4.19 X10*6/uL (4.20-5.50); White Blood Count 5.4 X10*3/uL (4.8-10.8)
[2024-11-20 14:50] LABS: Alanine Aminotransferase 22 U/L (0-31); Albumin Level 4.3 g/dL (3.5-5.0); Alkaline Phosphatase 57 U/L (39-117); Anion Gap 11 (12-20); Aspartate Amino Transferase 28 U/L (5-31); Bilirubin Total 0.6 mg/dL (0.0-1.0); Blood Urea Nitrogen 7 mg/dL (9-16); Calcium 9.1 mg/dL (8.4-10.2); Carbon Dioxide 26 mmol/L (22-29); Chloride 105 mmol/L (96-108); Cholesterol 164 mg/dL (<200); Estimated Glomerular Filt Rate > 60; Glucose Random 121 mg/dL (60-115); HDL Cholesterol 49 mg/dL (>40); LDL Cholesterol Calculated 94 mg/dL (<100); Potassium 3.7 mmol/L (3.3-5.1); Sodium 138 mmol/L (135-145); Total Protein 6.8 g/dL (6.5-8.0); Triglycerides 106 mg/dL (<150)
[2024-11-20 14:55] LABS: Creatinine Urine 74.75 mg/dL; Microalbum/Creatinine Ratio Ur 10.7 ug/mg cr (<30)
[2024-11-20 14:56] LABS: TSH reflex Free T4 0.74 uIU/mL (0.32-4.0); Vitamin D 25-OH Total 34.3 ng/mL (>30)
[2024-11-20 15:09] LABS: Folate 11.4 ng/mL (> or = 4.0); Vitamin B12 357 pg/mL (200-900)
[2024-11-21 04:11] LABS: Syphilis Screen Nonreactive (Nonreactive)
[2024-11-21 04:22] LABS: HIV AB/AG Nonreactive (Nonreactive); HIV Num 1 0.04 S/CO (0.00-0.99)
== END 2024-11-20 12:46 | disposition home or self-care (01) ==
LOC: HO.WFDLDS 12:45
PROVIDERS: Visit Provider Nurse Practitioner Family
DX: Z11.3 Encounter for screening for infections with a predominantly sexual mode of transmission (principal); Z00.00 Encounter for general adult medical examination without abnormal findings
CPT/HCPCS: 36415; 80053; 80061; 81003; 82043; 82306; 82570; 82607; 82746; 83036; 84443; 85027; 86780; 87389